=== PATIENT | female | born 1945 | race Caucasian/White ===

== ENCOUNTER → 2018-05-03 | Day surgery (SDC) | payer MEDICARE ==
--- NOTE | 2018-04-19 07:29 | HP ---
AMENDED REPORT NOW INCLUDES DESIGNATED COSIGNER CC: Dr. Rhianna Trinidad; Dr. Rocky Faulkner * ADMISSION HISTORY AND PHYSICAL: DATE OF ADMISSION: 05/03/18 ATTENDING SURGEON: Dr. Ann Tabor.* (DICTATED BY MIKO CHAPARRO) CHIEF COMPLAINT: Right breast cancer. HISTORY OF PRESENT ILLNESS: This is a 72-year-old generally healthy female who underwent routine screening mammography on 03/07/18. She had not previously noted any changes in either breast. The mammogram showed an increased central density in the right breast that was suspicious and further imaging by ultrasound on 03/12/18 did show an irregular hypoechoic mass at the 8 o'clock position, located 3 cm from the nipple and measuring 10 x 13 x 13 mm. In addition, there was noted a prominent lymph node in the right axilla measuring 17 x 11 x 6 mm. A subsequent biopsy was done on 03/20/18 showing invasive ductal carcinoma, which was ER positive, AR negative and HER2/babak negative. The patient's family history is negative for breast or ovarian cancer. She has not had any prior breast biopsies and she has undergone routine screening mammography. She was seen in the office by Dr. Tabor on 04/16/18, at which time exam showed no palpable masses of either breast, no skin or nipple changes and no palpable axillary adenopathy bilaterally. Dr. Tabor reviewed the imaging studies and felt that the ultrasound of the axillary lymph node did appear to have a normal fatty hilum and this was discussed at tumor board, which concurred. It was not felt to be indicated for a separate needle biopsy of this lymph node prior to definitive planned surgery. The patient understands the indications, risks, benefits, and alternatives of the proposed surgery and would like to proceed as scheduled with right breast lumpectomy (following needle localization) and right sentinel lymph node biopsy. PAST MEDICAL HISTORY: 1. Hypothyroidism (on chronic replacement). 2. Hyperlipidemia. She denies any history of heart disease, diabetes, chronic respiratory problems , other cancers or personal history of bleeding or clotting disorders. PAST SURGICAL HISTORY: 1. Open appendectomy remotely. 2. Tonsillectomy remotely. 3. Right carpal tunnel release. No surgical or anesthesia problems reported. CURRENT MEDICATIONS: 1. [place] Thyroid 15 mg once daily. 2. Fish oil and omega-3 combination once daily. 3. Policosanol 10 mg 2 tablets once daily. 4. Red yeast rice supplement 600 mg 2 tablets once daily. (The patient is directed to hold supplements for 2 to 3 days before surgery). DRUG ALLERGIES: LATEX (local reaction), TRIPLE ANTIBIOTIC OINTMENT (local reaction). FAMILY HISTORY: Negative for anesthesia problems, bleeding or clotting disorders. SOCIAL HISTORY: The patient lives with her son. She is fairly active with walking, yoga, and farm work. She is retired from prior laundry service work. She denies use of tobacco. She drinks alcohol occasionally, but not daily. She denies any other recreational drug use. REVIEW OF SYSTEMS: General: No recent constitutional symptoms or acute illnesses. Weight has been stable. HEENT: She states that she has bilateral cataracts, but these are being observed at the present time. No other problems reported. Cardiovascular: No chest pain, palpitations, history of hypertension or heart murmur. Respiratory: No history of asthma, chronic cough, or shortness of breath. GI: No problems reported. She states that she has never had screening done for colorectal cancer, which I encouraged her to discuss with her PCP. She has not had any symptoms of suspicion. : No problems reported. VP DESIGN: No additional problems reported. She no longer has Pap smears done. Endocrine: She is on thyroid replacement. PHYSICAL EXAMINATION GENERAL: Well-nourished, well-developed female, in no acute distress. VITAL SIGNS: Height 64 inches, weight 164 pounds. Blood pressure 122/70, pulse 84, temperature 97.6. HEENT: Pupils are equal and round, reactive. EOMs intact. No conjunctival pallor. Oropharynx: Teeth in good repair. No intraoral lesions. NECK: No lymphadenopathy in the cervical or supraclavicular regions. No masses. No thyromegaly. LUNGS: Clear to auscultation. No wheezes. HEART: Regular rate and rhythm. No murmur noted. BREASTS: Not reexamined (see above per Dr. Tabor). ABDOMEN: Soft, nontender to palpation. No palpable masses or organomegaly. GENITALIA: Not done. RECTAL: Not done. BACK: No spinous process or CVA tenderness. EXTREMITIES: No edema. NEUROLOGICAL: Grossly intact. SKIN: Warm and dry. No suspicious rashes or lesions noted. IMPRESSION: Right breast cancer. PLAN: Right breast lumpectomy (after needle localization); sentinel lymph node biopsy. MIKO CHAPARRO [id number]/[facility] #: [id number] TOYA
[~2018-05-03] MED LIST: Buffered Lidocaine 0.9% SYRIN* 5 ML/SYR SYRINGE INTRADERM ONE; Bupivacaine 0.25% SDV PF* 10 ML VIAL INJ ONE; Bupivacaine 0.5%* 50 ML VIAL ONE; Ibuprofen TAB* 400 MG ONE; Lactated Ringers 1000 ML Bag* 1,000 ML IV SCH; Lidocaine 1% INJ* 10 MG/ML 30 ML SDV ONE; Lidocaine 2% PF * 5 ML VIAL ONE; Lidocaine 2.5%/Prilocain 2.5%* 5 GM TUBE ONE; Midazolam* 1 MG/ML 5 ML VIAL (5 MG) ONE; Naloxone* 0.4 MG/ML 1 ML VIAL IV PRN; Ondansetron INJ* 2 MG/ML VIAL IV PRN; Propofol* 10 MG/ML 20 ML BTL ONE; Sodium Citrate/Citric Acid* 15 ML UDC ONE; Sodium Citrate/Citric Acid* 15 ML UDC PO ONE; ceFAZolin 2 GM PREMIX in ORs 2 GM/50 ML BAG IVPB ONE; fentaNYL* 50 MCG/ML 2 ML VIAL (100 MCG VIAL) IV PRN; fentaNYL* 50 MCG/ML 2 ML VIAL (100 MCG VIAL) ONE
[2018-05-03 15:46] VITALS: BP 152/78
--- NOTE | 2018-05-03 22:57 | OP ---
AMENDED REPORT NOW INCLUDES DATE OF OPERATION - ESIGNED BEFORE ADJUSTMENT * DATE OF OPERATION: 05/03/18 - SDS DATE OF : 49 SERVICE: General Surgery. SURGEON: Ann Tabor MD INFORMATION SECURITY OFFICER: Dr. Allie Lee. PRE-OP DIAGNOSIS: Right breast cancer. POST-OP DIAGNOSIS: Right breast cancer. OPERATIVE PROCEDURE: Right breast wire localized lumpectomy and right sentinel lymph node biopsy. INDICATIONS: Ms. Payton is a 72-year-old female, who was recently diagnosed with right breast invasive ductal adenocarcinoma after work up was performed for an abnormality found on screening mammogram. For this reason, informed consent was obtained for a right breast wire localized lumpectomy as well as a sentinel lymph node biopsy. She understood the risks, benefits, and alternatives of the procedure, and she wished to proceed. ESTIMATED BLOOD LOSS: 20 cc. SPECIMEN: Right breast lumpectomy, right breast inferior margin, right axillary sentinel lymph node. DESCRIPTION OF PROCEDURE: The patient was brought back to the operating room and placed on the operating table in the supine position. Venodyne boots were placed on the bilateral lower extremities for DVT prophylaxis. Antibiotics were administered prior to incision. The patient elected to undergo local anesthesia under MAC. Her right breast and axilla were prepped and draped in a normal sterile fashion. Prior to beginning the procedure, a time-out was performed verifying the patient's name, MR number, and the procedure to be performed. The wire that had been placed by Radiology was cut approximately 3 inches in the skin so it could be more easily handled. Next, local anesthesia with 0.25% Marcaine and 1% lidocaine mixed was administered to an elliptical incision, oriented around the wire. The incision was made around the wire and was carried down to the subcutaneous tissue and into the breast tissue. A cone of breast tissue around the wire was grasped with Allis clamps and a cone of tissue was cored out according to the orientation of the wire and its direction on mammogram. Once it was removed it oriented and marked with sutures; the short suture at the superior border, medium suture at the medial border, and a long suture at the lateral border. The specimen was sent to Radiology to be imaged under mammography. Prior to surgery I had spoken to the radiologist who performed the wire localization and he noted that the wire was within but not entirely past the area of abnormality. Therefore, after removing the specimen I elected to remove an additional deep inferior margin to ensure that we had the adequate margins. This was sent off as a second specimen and also imaged and its markings were the same as the breast lumpectomy. Meticulous hemostasis was obtained to ensure that there was no bleeding in the breast cavity site. Mammogram confirmed that the wire, radiographic abnormality and clip were all in the specimen. During this part of the surgery the patient underwent general given there was a significant amount of discomfort that was not alleviated by the repeated administration of local anesthesia. Next, attention was turned to the right axilla for the sentinel lymph node biopsy. Gloves were removed and new instruments were used for this portion of the procedure. Using the Conrad counter, the area of the hottest node was felt to be at the area that had been marked after the lymphoscintigraphy was performed. An incision was made in the axilla over this area. The skin was divided down to the subcutaneous tissue and the sentinel lymph node was identified and the in situ count was 2524, ex vivo count after the sentinel lymph node was removed was 2788, and the axillary bed count was 75. After removing the sentinel lymph node, careful hemostasis was obtained, the cavity was irrigated, and the incision was closed using interrupted 3- 0 Vicryl sutures and the skin was closed using a running 4-0 Monocryl suture. Then, attention was turned back to the breast cavity. Again, meticulous hemostasis was obtained and ensured and clips were used to clip the boundaries of the breast cavity in case the patient may require radiation at a later point, and once this was done, 10 cc of lidocaine was administered to the cavity for additional local anesthesia and the incision was closed using interrupted 3-0 Vicryl sutures and a running 4-0 Monocryl suture for the skin. Next, sterile dressing was placed. The patient's anesthesia was reversed and she was taken to the PACU in stable condition. At the end of the case, all counts were correct and I was present during the entirety of the case. [id number]/[facility] #: [id number] TOYA
== END | disposition home or self-care (01) ==
LOC: OR 06:56
PROVIDERS: ATTEND Surgery
DX: C50.911 Malignant neoplasm of unspecified site of right female breast (principal); E03.9 Hypothyroidism, unspecified; E78.00 Pure hypercholesterolemia, unspecified; E78.5 Hyperlipidemia, unspecified
CPT/HCPCS: 77061; 78195; 88307; 88342; A9270-GY; A9541; G0279; J0690; J2250; J2704; J3010; J3490